=== PATIENT | female | born 2000 ===

== ENCOUNTER 2023-09-02 14:24 | Emergency (ER) | payer OTHER, SELFPAY ==
[2023-09-02 14:30] VITALS: BP 116/75; PULSE 102; RESP 16; TEMP 36.7; O2SAT 98; BMI 22.2
--- NOTE | 2023-09-02 14:49 | CRLHL7_ITS ---
For Patients: As a result of the Cures Act, medical imaging exams and procedure reports are released immediately into your electronic medical record. You may view this report before your referring provider. If you have questions, please contact your health care provider. INDICATION: Pain at the base of the 5th metatarsal COMPARISON: None. TECHNIQUE: Three views left foot. FINDINGS: BONES: No fracture. Normal mineralization. No focal bone lesion. JOINT: Normal joint alignment. Joint spaces: Normal. Soft Tissues: Normal. No foreign body. IMPRESSION: Normal left foot radiographs. Dictated by Chelsie Dumont MD @ 09/02/2023 3:17:35 PM (Electronically Signed)
--- NOTE | 2023-09-02 15:09 | ED.LOWEXIN ---
HPI - Extremity Injury (Lower) General Date Seen: 09/02/23 Chief Complaint: Extremity Pain/Injury, Lower Stated Complaint: L leg trauma during climbing yesterday Time Seen by Provider: 09/02/23 14:29 Source: patient Mode of arrival: ambulatory Limitations: no limitations History of Present Illness HPI Narrative: Patient is a 22-year-old female presenting for left foot pain. She states she was at the gym yesterday and fell about 2 ft landing on her left ankle. Since then she is having a lot of pain and difficulty walking on it. Has been taking ibuprofen for pain. Notes at the time of it happened she said she heard a pop and became very lightheaded nauseated. Lightheadedness and nausea has since resolved. Has been using Jared wrap on the foot. Denies any ankle or knee pain. States most of pain is on the lateral aspect of the midfoot. No other concerns noted. Related Data Home Medications Medication Instructions Recorded Confirmed Lexapro 09/02/23 Allergies Allergy/AdvReac Type Severity Reaction Status Date / Time No Known Drug Allergies Allergy Verified 09/02/23 14:35 Review of Systems Narrative: Pertinent systems reviewed and negative unless stated in HPI PFSH PFSH Social History Smoking Status: Never smoker How often do you have a drink containing alcohol: never AUDIT-C Alcohol total score: 0 Non-prescribed substance use: denies use Exam Narrative: Exam Narrative: Const: Well-nourished, Well-developed, in mild distress Eyes: PERRL, no conjunctival injection, and symmetrical lids HENT: Atraumatic external nose and ears. Moist mucous membranes. MSK:Extremities w/o deformity, normal active range of motion, mild bruising to the lateral aspect of the left foot and pain noted to midfoot and around the base of the 5th metatarsal Skin: Warm, Dry. No rashes or lesions. Neuro: Normal Muscle tone, No focal neurological deficits. Psych: Awake, Alert, & Oriented x3. Appropriate mood and affect. Const: Vital Signs, click to edit/add: Vital Signs - 24 hr 09/02/23 14:30 Temperature 98.1 F Pulse Rate [Pulse Oximeter] 102 H Respiratory Rate 16 Blood Pressure [Le ft Upper Arm] 116/75 Pulse Oximetry 98 Oxygen Delivery Me thod Room Air Course Vital Signs Vital signs: Initial Vital Signs Temperature 98.1 F 09/02/23 14:30 Temperature Source Temporal Artery Scan 09/02/23 14:30 Pulse Rate 102 H 09/02/23 14:30 Respiratory Rate 16 09/02/23 14:30 Blood Pressure 116/75 09/02/23 14:30 Blood Pressure Mean 88 09/02/23 14:30 Blood Pressure Position Supine 09/02/23 14:30 Pulse Oximetry 98 09/02/23 14:30 Oxygen Delivery Method Room Air 09/02/23 14:30 Vital Signs Temperature 98.1 F 09/02/23 14:30 Pulse Rate 102 H 09/02/23 14:30 Respiratory Rate 16 09/02/23 14:30 Blood Pressure 116/75 09/02/23 14:30 Pulse Oximetry 98 09/02/23 14:30 Oxygen Delivery Method Room Air 09/02/23 14:30 Temperature 98.1 F 09/02/23 14:30 Pulse Rate 102 H 09/02/23 14:30 Respiratory Rate 16 09/02/23 14:30 Blood Pressure 116/75 09/02/23 14:30 Pulse Oximetry 98 09/02/23 14:30 Oxygen Delivery Method Room Air 09/02/23 14:30 MDM - Extremity Injury (Lower) MDM Narrative Medical decision making narrative: Patient is a 22-year-old female presents patient for left foot pain. She has good pulses normal sensation and has the. Neurovascular intact with x-rays of the foot. No pain noted to the left hip, knee, ankle. Has full range of motion of the ankle and toes. X-rays were done showing no acute abnormalities. Most likely she sprained the foot. No obvious fractures or dislocations seen. She will be discharged home. Imaging Data Left foot x-ray: Radiologist's impression: Normal left foot radiographs. Dictated by Chelsie Dumont MD @ 09/02/2023 3:17:35 PM Discharge Plan Discharge Clinical Impression: Foot sprain Qualifiers: Encounter type: initial encounter Laterality: left Qualified Code(s): S93.602A - Unspecified sprain of left foot, initial encounter Patient Disposition: Home, Self-Care Condition: Stable Instructions: Foot Sprain (ED) Additional Instructions: Take Tylenol and ibuprofen for pain. You can continue to use the Jared wrap as needed along with ice. Return to the emergency department for new or worsening symptoms Prescriptions: No Action Lexapro Stand Alone Forms: [email or web address] Info Instructions
== END 2023-09-02 16:13 | disposition home or self-care (01) ==
LOC: ED 16:14
PROVIDERS: Emergency Provider Student in an Organized Health Care Education/Training Program
DX: S93.602A Unspecified sprain of left foot, initial encounter (principal); W18.30XA Fall on same level, unspecified, initial encounter; Y93.9 Activity, unspecified; Y92.89 Other specified places as the place of occurrence of the external cause
CPT/HCPCS: 73630; 99282; 99283